=== PATIENT | female | born 1985 | race Caucasian/White ===

== ENCOUNTER 2016-04-27 20:52 | Emergency (ER) | payer OTHER ==
[2016-04-27 20:59] VITALS: BP 122/79
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
--- NOTE | 2016-04-28 10:13 | Diag Imaging Result Document ---
PROCEDURE NAME: ANKLE COMPLETE RIGHT - 04/27/2016 RIGHT ANKLE, 3 VIEWS: FINDINGS: There is no fracture or dislocation identified. IMPRESSION: No evidence of fracture or dislocation.
== END 2016-04-27 21:53 | disposition home or self-care (01) ==
LOC: ED 20:52
DX: S93.401A Sprain of unspecified ligament of right ankle, initial encounter (principal); S99.911A Unspecified injury of right ankle, initial encounter; V89.2XXA Person injured in unspecified motor-vehicle accident, traffic, initial encounter; M79.1 Myalgia; M62.81 Muscle weakness (generalized); S90.31XA Contusion of right foot, initial encounter; Z79.899 Other long term (current) drug therapy